=== PATIENT | female | born 1980 | race Caucasian/White ===

== ENCOUNTER 2022-01-07 06:10 | Day surgery (SDC) | payer OTHER ==
[~2022-01-07] VITALS: Ht 162.6 cm; Wt 101.1 kg
[~2022-01-07 06:10] MED LIST: CALCIUM CITRATE PO; HYDCHL25 PO; LOSA25 PO; Prozac40 MG PO
--- NOTE | 2022-01-07 06:24 | NUR ---
Ambulatory in Day SurgeryPatient up to Ambulate independently. Gait steady. History, Chart, Medications and Allergies reviewed before start of procedure.Patient confirms NPO status and agrees with scheduled surgery. Patient States Post-Procedure ride home has been arranged.
--- NOTE | 2022-01-07 08:09 | NUR ---
01/07/22 0809 Rakan Chandra History, Chart, Medications and Allergies reviewed before start of procedure. MONITOR INTACT WITH CONTINUOUS PULSE OXIMETRY AND INTERMITTENT BP. 3-LEAD EKG REVIEWED WITH PHYSICIAN PRIOR TO START OF PROCEDURE. PROCEDURE DONE IN OR ROOM [address] THEODORE ANESTHESIA.
== END 2022-01-07 22:56 | disposition home or self-care (01) ==
LOC: ORSCMMR 06:10 → ORD 07:30 → ORSCMMR 07:30
PROVIDERS: Surgery
PROC: 06BY0ZC Excision of Hemorrhoidal Plexus, Open Approach (ICD-10-PCS; principal; 2022-01-07 07:30)
PROC: 0DJD8ZZ Inspection of Lower Intestinal Tract, Via Natural or Artificial Opening Endoscopic (ICD-10-PCS; principal; 2022-01-07 07:30)
DX: K62.5 Hemorrhage of anus and rectum (principal); K64.8 Other hemorrhoids; K64.4 Residual hemorrhoidal skin tags; I10 Essential (primary) hypertension; Z87.891 Personal history of nicotine dependence; Z79.899 Other long term (current) drug therapy; F41.8 Other specified anxiety disorders; E66.9 Obesity, unspecified; Z68.38 Body mass index [BMI] 38.0-38.9, adult
CPT/HCPCS: 84703; 88304; A9270; J1100; J2250; J2370; J2405; J2704; J2795; J3010; J7120

== ENCOUNTER → 2023-02-28 | Outpatient (CLI) | payer OTHER ==
[2023-03-04 06:08] LABS: CORTISOL,SALIVA 0.033 ug/dL
== END ==
LOC: LAB 09:35 → LAB SHORT 09:35
PROVIDERS: Nurse Practitioner Family
DX: F41.8 Other specified anxiety disorders (principal); E65 Localized adiposity; I10 Essential (primary) hypertension; R61 Generalized hyperhidrosis
CPT/HCPCS: 82533

== ENCOUNTER → 2023-03-01 | Outpatient (CLI) | payer OTHER ==
[2023-03-04 07:40] LABS: CORTISOL,U FREE - RATIO TO CRT 19.36 ug/g CRT; CORTISOL,URINE FREE - PER 24H 30.2 ug/d (<=45.0); CREATININE,URINE - PER 24H 1560 mg/d (700-1600); CREATININE,URINE - PER VOLUME 78 mg/dL; HOURS COLLECTED 24 hr; TOTAL VOLUME 2000 mL
== END | disposition home or self-care (01) ==
LOC: LAB 02-28 09:35
PROVIDERS: Nurse Practitioner Family
DX: E65 Localized adiposity (principal); I10 Essential (primary) hypertension; F41.8 Other specified anxiety disorders; R61 Generalized hyperhidrosis
CPT/HCPCS: 81050; 82530